=== PATIENT | female | born 1990 | race Caucasian/White ===

== ENCOUNTER 2018-07-22 14:49 | Day surgery (SDC) | payer OTHER ==
--- NOTE | 2018-07-22 15:22 | PDOC.FPROB ---
FMR OB H&P: HPI - History of Present Illness Chief Complaint: fleft flank pain Indentification: History of Present Illness: The patient is a 28 YO @ 33.1 weeks who was sent to L&D from [facility] after presenting there complaining of left flank pain and was found to have hematuria on a UA done in the office today. Per the patient, she developed sudden onset, left-sided flank pain yesterday morning at ~0300. She reports that the pain woke her up from sleep and has been a dull, constant, aching pain w/ radiation into her left side and groin ever since. She actually initially presented to the [place] [facility] and was found to have hematuria but no further workup was done so she reported to clinic for further evaluation today. The patient states that the pain is 7-8/10 constantly and will occasionally increase to 10/10. She reports exacerbation with sitting and says she actually gets some relief when she get sup and moves. The patient states she has been taking ЕЛЕНА tylenol since the pain began and has gotten no relief with this. She denies any h/o UTIs in this or h/o kidney stones. She also denies any associated fever/chills , N/V, dysuria, gross hematuria, or malordorous or cloudy urine. [facility] F[facility] OB H&P: Current - Care : 7 Para: [id number] Gestational age: 33.1 Due date: 09/08/18 Dating Criteria: LMP c/w 9.3 week sono Course/Complications: none this FMR OB H&P: History - Past Medical History PMH: formerly treated for chronic HTN, no meds in ~2.5 years per patient - OB History OB History: h/o SAB x5 h/o HELLP syndrome h/o C/S 2/2 HELLP @ 24 weeks - Surgical History Sx History: C/S x1 D&C in 2012 - Social History Social History: Current smoker, down to 5-8 cigs/day from ~2ppd for ~15 years. No EtOH or drug use. - Family History Family History: Parents HTN Father ID [phone] Maternal grandmother DMII FMR OB H&P: Medications - Current Home Medications: Medication Instructions Recorded Confirmed Type Acetaminophen W/ Codeine 2 tab PO Q4H PRN #30 tab 07/22/18 Rx [Acetaminophen/Codeine #3] Aspirin [Ecotrin Low Strength] 81 mg PO DAILY 07/22/18 07/22/18 History Enoxaparin Sodium 40 mg SQ DAILY 07/22/18 07/22/18 History Enoxaparin Sodium 40 mg SQ DAILY 07/22/18 07/22/18 History Vit 108/Iron/Folic AC 1 tablet PO DAILY 07/22/18 07/22/18 History [ One Tablet] Allergies/Adverse Reactions: Allergies Allergy/AdvReac Type Severity Reaction Status Date / Time meperidine [From Demerol] Allergy Verified 07/22/18 15:29 Penicillins Allergy Verified 07/22/18 15:29 Tetanus Vaccines and Toxoid Allergy Verified 07/22/18 15:29 FMR OB H&P: ROS - Review of Systems General: denies: fever/chills, fatigue Eyes: denies: eye pain, vision changes ENT: reports: nasal congestion. denies: sinus pain/pressure, ear pain, sore throat Cardiovascular: denies: chest pain, palpitation Respiratory: reports: cough. denies: shortness of breath Gastrointestinal: denies: abdominal pain, nausea, vomiting, diarrhea, constipation Genitourinary (Female): denies: dysuria, hematuria, vaginal discharge, vaginal pain, vaginal bleeding, contractions, vaginal pressure Musculoskeletal: reports: pain, tenderness Neurologic: denies: headache Integumentary: denies: itching, rash FMR OB H&P: Vital Signs - Maternal Vital signs: BP: 136/65 HR: 100 RR: 18 Temp: 98.3F - Heart Tones Baseline: 150 Variability: moderate [place] contractions every: none FMR OB H&P: Physical Exam - Physical Exam General: NAD, awake, alert and oriented HEENT: normocephalic and atraumatic, conjunctiva clear, grossly normal vision, grossly normal hearing Neck: supple, FROM Heart: RRR, normal S1/S2, no murmurs/rubs/gallops, pulses present, no edema General: CTAB, no respiratory distress, good air movement, no rales/rhonchi, no wheezing, no retractions Abdomen: gravid, bowel sound present, other (mild TTP in left upper and lower quadrants; no rebound or guarding) Musculoskeletal: pulses present, FROM in all four extremities Neurological: cranial nerves II through XII intact, sensation to pain,touch and proprioception grossly normal, no focal deficit Skin: no rash, good tugor Lymphatic: no unusual bruising or bleeding, no purpura Psychiatric: intact recent and remote memory, good judgement and insight, normal mood and affect FMR OB H&P: Results - Labs Lab results: Laboratory Tests 07/22/18 07/22/18 16:30 16:32 WBC 14.1 H Urine Blood Negative Ur Leukocyte Esterase Small H Urine WBC 7-10 H Urine Bacteria Rare-Few - Imaging Imaging: Renal U/S- 2.3x2.1x2.2cm hypoechoic mass in left renal cortex; no hydronephrosis FMR OB H&P: A/P - Problem List (1) Flank pain, acute Status: Acute Code(s): R10.9 - UNSPECIFIED ABDOMINAL PAIN (2) Hematuria Status: Acute Code(s): R31.9 - HEMATURIA, UNSPECIFIED (3) Single in third trimester Status: Acute Code(s): Z34.93 - ENCNTR FOR SUPRVSN OF NORMAL PREG, UNSP, THIRD TRIMESTER (4) History of HELLP syndrome, currently Status: Acute Code(s): O09.299 - SUPRVSN OF PREG W POOR REPRODCTV OR OBSTET HISTORY, UNSP TRI (5) History of spontaneous , currently Status: Acute Code(s): O09.299 - SUPRVSN OF PREG W POOR REPRODCTV OR OBSTET HISTORY, UNSP TRI (6) Tobacco abuse Status: Acute Code(s): Z72.0 - TOBACCO USE (7) History of Status: Acute Code(s): Z98.891 - HISTORY OF UTERINE SCAR FROM PREVIOUS SURGERY (8) History of depression Status: Acute Code(s): Z86.59 - PERSONAL HISTORY OF OTHER MENTAL AND BEHAVIORAL DISORDERS Disposition: 28YO @ 33.1 weeks by LMP c/w 9.3 week sono who was sent to L&D from [facility] after presenting there a CC of left flank pain and hematuria found on a UA done in the office today. left flank pain: - Patient afebrile and HD stable w/ no other systemic signs suggestive of pyelo. Cath UA negative for blood & showed only mild LE and a few WBCs. Culture pending. 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 Given current size, no need for urgent workup but definitely explanation for patient's flank pain. - Will give script for Tylenol #3 for pain control since [facility] tylenol has not given her any relief & tylenol #3 did help while here. - Will make sure patient is set up for an outpatient MRI to help establish a more definitive diagnosis & possible need to specialist referral for further management. Hematuria: - UA + for moderate blood in office today. - Repeat UA via straight cath here negative for blood. sIUP in third trimester: - Patient at 33.1 weeks today. Will continue PNVs and other home meds as recommended by [facility]. h/o recurrent SAB (x5): - Aware, patient follows w/ [facility] and tested + for multiple mutations increasing her risk for SAB. Will continue home ASA, lovenox, PNVs, and folic acid as recommended by M. h/o HELLP syndrome: - Aware, will instruct patient to continue monitoring BPs at home as instructed by PCP and will continue ASA 81mg QD. tobacco use: - Aware, patient down from 2ppd to 5-8 cigs/day. 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 h/o depression: - Aware, not currently symptomatic. h/o prior C/S x 1 @ 24 weeks 2/ HELLP: - Patient desires TOLAC per [facility] records. Discussion: Date/Time: 07/22/181521 This H&P was discussed with Dr. Matias and Dr. Lemons who agree with the above documentation and plan. Addendum - Attending - Attending Attestation Date/Time: 07/22/181936 I personally evaluated the patient and discussed the management with Dr. Hernandez. I agree with the History, Examination, Assessment and Plan documented above with any addition or exceptions noted below. Hypoechoic area in kidney can be worked up as outpatient later this week. Precautions given.
[2018-07-22 15:24] VITALS: BP 136/65; TEMP 98.3; BMI 37.3
[2018-07-22] MEDS ORDERED: Acetaminophen/Codeine 30-300mg Tablet PO PRN (15:54)
[2018-07-22 16:48] LABS: #Eosinphils 0.2 thou/uL (0.0-0.7); #Lymphocytes 2.4 thou/uL (1.20-3.40); #Monocytes 0.6 thou/uL (0.11-0.59); %Basophils 0.2 % (0.0-1.0); %Eosinophils 1.1 % (0.0-10.0); %Lymphocytes 16.7 % (21.0-51.0); %Monocytes 3.9 % (0.0-10.0); %Neutrophils 78.1 % (42.0-75.0); Hemoglobin 10.7 g/dL (12.0-16.0); Mean Corpuscular HGB CONC 34.4 g/dL (32.0-36.0); Mean Corpuscular Hemoglobin 32.3 pg (27.0-31.0); Mean Corpuscular Volume 93.9 fL (78.0-98.0); Mean Platelet Volume 7.3 fL (7.4-10.4); Platelet Count 336 thou/uL (130-400); RBC Distribution Width 11.7 % (11.5-14.5); Red Blood Cell (RBC) Count 3.32 mill/uL (4.20-5.40); White Blood Cell (WBC) Count 14.1 thou/uL (4.8-10.8)
--- NOTE | 2018-07-22 17:12 | ULT ---
RENAL ULTRASOUND 07/22/18 INDICATION: Left sided flank pain. COMPARISON: Prior CT of the abdomen and pelvis dated 02/08/11. FINDINGS: The right kidney measures 14 x 5.1 x 5.5 cm. Left kidney measures 13.6 x 6.5 x 5.7 cm. Prevoid bladde r volume was 59.6 mL. There is a hypoechoic mass suspected within the mid to superior pole of the lef t kidney measuring 2.3 x 2.1 x 2.2 cm. IMPRESSION: 1. Hypoechoic mass suspected within the mid to superior pole left kidney. In light of patient be ing , further characterization with a noncontrast MR may be helpful for further evaluation. 2. No hydronephrosis demonstrated. Code T POS: MARGARITA
[2018-07-22 17:24] LABS: Bilirubin Negative (Negative); Blood, Urine Negative (Negative); Clarity CLEAR (Clear); Glucose, Urine (Dipstick) Negative (Negative); Leukocyte Small (Negative); Nitrite Negative (Negative); Protein, Urine (Dipstick) Negative (Neg-Trace); Urobilinogen 0.2 mg/dL (0.2-1.0)
[2018-07-22 17:25] LABS: Squamous Epithelial 0-3 HPF (0-3)
[2018-07-22 17:29] LABS: Pathc Cast-AUWi Flag 2.58 (0-2.49)
[2018-07-22 17:38] LABS: Bacteria/HPF Rare-Few HPF (None Seen); Manual Microscopic Reviewed? No Path Casts Seen; RBC/HPF 0-3 HPF (0-3)
[2018-07-22 17:39] LABS: Hyaline Casts/LPF 0-3 HYALINE CAST LPF (0-3 Hyaline); Urine Culture Reflex Yes Yes
[2018-07-22 18:53] LABS: Anion Gap 14 mmol/L (10-20); BUN (Urea Nitrogen) 10 mg/dL (7.0-18.7); Calc. Creatinine Clearance 251 mL/min (70-130); Calcium 9.7 mg/dL (7.8-10.44); Carbon Dioxide 22 mmol/L (22-29); Chloride 107 mmol/L (98-107); Estimated GFR-MDRD Greater than 90; Glucose 104 mg/dL (70-105); Potassium 3.9 mmol/L (3.5-5.1); Sodium 139 mmol/L (136-145)
== END 2018-07-22 18:50 | disposition home or self-care (01) ==
LOC: L&D/OP 14:49
PROVIDERS: ATTEND Family Medicine
DX: O99.89 Other specified diseases and conditions complicating pregnancy, childbirth and the puerperium (principal); R10.9 Unspecified abdominal pain; R31.9 Hematuria, unspecified; O10.013 Pre-existing essential hypertension complicating pregnancy, third trimester; O99.333 Smoking (tobacco) complicating pregnancy, third trimester; F17.210 Nicotine dependence, cigarettes, uncomplicated; O99.343 Other mental disorders complicating pregnancy, third trimester; F32.9 Major depressive disorder, single episode, unspecified; Z3A.33 33 weeks gestation of pregnancy; Z88.5 Allergy status to narcotic agent; Z88.0 Allergy status to penicillin; Z88.7 Allergy status to serum and vaccine; Z79.01 Long term (current) use of anticoagulants; Z79.82 Long term (current) use of aspirin
CPT/HCPCS: 36415; 51701; 76770; 80048; 81001; 85025; 87086; 99283